=== PATIENT | female | born 1985 | race Caucasian/White ===

== ENCOUNTER 2019-06-30 14:19 | Emergency (ER) | payer OTHER ==
[~2019-06-30] VITALS: Ht 170.2 cm; Wt 65.8 kg
== END 2019-06-30 18:58 | disposition home or self-care (01) ==
LOC: ER 14:19
DX: O26.892 Other specified pregnancy related conditions, second trimester (principal); S30.0XXA Contusion of lower back and pelvis, initial encounter; S13.4XXA Sprain of ligaments of cervical spine, initial encounter; V49.9XXA Car occupant (driver) (passenger) injured in unspecified traffic accident, initial encounter; Y93.89 Activity, other specified; Y92.488 Other paved roadways as the place of occurrence of the external cause; Y99.8 Other external cause status; Z34.82 Encounter for supervision of other normal pregnancy, second trimester

== ENCOUNTER 2019-10-13 08:44 | Inpatient (IN) | payer OTHER ==
[~2019-10-13] VITALS: Ht 170.2 cm; Wt 72.6 kg
[2019-10-13] MEDS ORDERED: PRENATABS RX T1 EACH PO (09:07)
== END 2019-10-16 15:16 | disposition home or self-care (01) | DRG 788 ==
LOC: OBS/DEL 08:44 → OB/GYN 10:20 → LDR 10:20 → O/R 13:43 → OB/GYN 15:19
PROVIDERS: ADMIT Obstetrics & Gynecology
PROC: 4A1HXCZ Monitoring of Products of Conception, Cardiac Rate, External Approach (ICD-10-PCS; 2019-10-13)
PROC: 10D00Z1 Extraction of Products of Conception, Low, Open Approach (ICD-10-PCS; principal; 2019-10-13 13:15)
DX: O82 Encounter for cesarean delivery without indication (principal); O64.1XX0 Obstructed labor due to breech presentation, not applicable or unspecified; Z3A.38 38 weeks gestation of pregnancy; Z37.0 Single live birth